=== PATIENT | female | born 1965 | race Caucasian/White ===

== ENCOUNTER 2019-11-12 07:22 | Day surgery (SDC) | payer OTHER, SELFPAY ==
[~2019-11-12] VITALS: Ht 167.6 cm; Wt 72.6 kg
[2019-11-12] MEDS ORDERED: fentaNYL 0.05 MG/ML VIAL ONE (10:00)
[2019-11-12] MEDS ORDERED: MIDAZOLAM 2 MG/2 ML VIAL ONE (10:00)
[2019-11-12] MEDS ORDERED: LIDOCAINE 2% 100 MG/5 ML UJET TP ONE (10:49)
== END 2019-11-12 11:42 | disposition home or self-care (01) ==
LOC: MDS 07:22 → MMU 07:22 → MDS 11:42
PROVIDERS: ATTEND Internal Medicine Gastroenterology
DX: Z12.11 Encounter for screening for malignant neoplasm of colon (principal); E03.9 Hypothyroidism, unspecified; Z87.891 Personal history of nicotine dependence; Z11.59 Encounter for screening for other viral diseases
CPT/HCPCS: 45378; J2250; J3010; U0003